=== PATIENT | male | born 1980 | race Hispanic/Latino ===

== ENCOUNTER 2017-02-18 13:32 | Emergency (ER) | payer SELFPAY ==
[~2017-02-18] VITALS: Ht 167.6 cm; Wt 98.5 kg
[~2017-02-18 13:32] MED LIST: ALBUTEROL SULF8.5 GM IH; ANAPROX DS550 M1 PO; LORATADINE10 M2 PO; NOHOMEMEDS; PERCOCET 5/31 TABLET PO; PREDNISONE10 M1 PO; PREDNISONE20 MG PO; PREDNISONE50 MG PO; PROMETHAZINE HC25 M1 PO; VALIUM5 MG PO; VENTOLIN HFA18 GM IH; ZITHROMAX Z-PA250 MG PO
[2017-02-18] MEDS ORDERED: ERYTHROMYC1 APPLICAT RIGHT EYE (15:28)
[2017-02-18 15:42] VITALS: BP 120/79
== END 2017-02-18 15:43 | disposition home or self-care (01) ==
LOC: EME 13:32
PROC: 08CNXZZ Extirpation of Matter from Right Upper Eyelid, External Approach (ICD-10-PCS; principal; 2017-02-18)
DX: T15.81XA Foreign body in other and multiple parts of external eye, right eye, initial encounter (principal); W22.8XXA Striking against or struck by other objects, initial encounter
CPT/HCPCS: 99281; 99283